=== PATIENT | male | born 1990 | race Caucasian/White ===

== ENCOUNTER 2019-03-22 11:50 | Emergency (ER) | payer BC ==
[~2019-03-22] VITALS: Ht 182.9 cm; Wt 80.7 kg
[~2019-03-22 11:50] MED LIST: ACETAMINOPHEN-1 EAC1 PO; BACTRIM DS TAB1 EACH; DOXYCYCLINE 10100 M1 PO; IBUPROFEN 400400 M1; NORCO 5-325 TA1 EACH PO; TOBRAMYCIN SULFA5 ML OPHTHALMIC; TRAMADOL 50 MG50 MG; ZOFRAN4 MG PO
[2019-03-22] MEDS ORDERED: NYQUIL PO (12:16)
[2019-03-22 12:31] LABS: ABSOLUTE EOSINOPHILS 0.4 thou/uL (0.0-0.7); ABSOLUTE LYMPHOCYTES 1.1 thou/uL (0.8-5.3); ABSOLUTE MONOCYTES 0.5 thou/uL (0.0-1.2); ABSOLUTE NEUTROPHILS 5.7 thou/uL (1.6-8.1); BASOPHILS 0.3 %; EOSINOPHILS 5.1 %; HEMATOCRIT 42.5 % (42.0-52.0); HEMOGLOBIN 14.4 gm/dL (14.0-18.0); LYMPHOCYTES 14.2 %; MCH 29.5 pg (26.0-34.0); MCHC 33.8 g/dL (28.0-37.0); MCV 87.3 fL (80.0-100.0); MPV 7.3 fl. (7.2-11.1); NUCLEATED RBCS 0 /100WBC; PLATELET COUNT* 301 thou/uL (150-400); POLYS 73.4 %; RBC 4.87 mil/uL (4.50-6.00); RDW-CV 13.2 % (10.5-14.5); WBC 7.7 thou/uL (4.0-11.0)
[2019-03-22 12:39] LABS: CALCIUM 8.8 mg/dL (8.5-10.1); CREATININE 0.9 mg/dL (0.6-1.3); POTASSIUM 4.2 mmol/L (3.5-5.1)
[2019-03-22 12:44] LABS: ALBUMIN 3.8 g/dL (3.4-5.0); MAGNESIUM 2.1 mg/dL (1.8-2.4); TOTAL BILIRUBIN 0.5 mg/dL (<0.1-1.0)
[2019-03-22 12:51] LABS: BE -1.9 mmol/L (-2 to +3); PO2 70.2 mmHg (75.0-100.0); pH 7.401 (7.340-7.450)
[2019-03-22] MEDS ORDERED: MUCINEX DM ER1 EACH PO (13:42)
[2019-03-22] MEDS ORDERED: AMOXICILLIN875 MG PO (13:42)
[2019-03-22] MEDS ORDERED: MEDROLDOSEPACK PO (13:42)
[2019-03-22 13:50] LABS: URINE BILIRUBIN NEGATIVE (Negative); URINE BLOOD NEGATIVE (Negative); URINE CLARITY CLEAR; URINE COLOR YELLOW; URINE GLUCOSE-RANDOM NEGATIVE (Negative); URINE KETONES NEGATIVE (Negative); URINE LEUKOCYTES-REFLEX NEGATIVE (Negative); URINE NITRITE-REFLEX NEGATIVE (Negative); URINE PROTEIN NEGATIVE (Negative); URINE SPECIFIC GRAVITY 1.025 (1.005-1.030); URINE UROBILINOGEN 0.2 E.U./dl (0.2-1.0)
[2019-03-22 14:09] VITALS: BP 128/53
== END 2019-03-22 14:10 | disposition home or self-care (01) ==
LOC: M.ERS 11:50
PROVIDERS: Personal Emergency Response Attendant
DX: J40 Bronchitis, not specified as acute or chronic (principal); J02.9 Acute pharyngitis, unspecified; R61 Generalized hyperhidrosis; R11.10 Vomiting, unspecified; F17.210 Nicotine dependence, cigarettes, uncomplicated; F10.10 Alcohol abuse, uncomplicated; Z79.899 Other long term (current) drug therapy

== ENCOUNTER 2020-03-26 19:38 | Emergency (ER) | payer OTHER, BC ==
[~2020-03-26] VITALS: Ht 182.9 cm; Wt 70.3 kg
[~2020-03-26 19:38] MED LIST changes: +AMOXICILLIN875 MG PO; +MEDROLDOSEPACK PO; +MUCINEX DM ER1 EACH PO; +NYQUIL PO
[2020-03-26] MEDS ORDERED: NAPROSYN500 MG PO (20:54)
[2020-03-26 21:17] VITALS: BP 136/74
== END 2020-03-26 21:17 | disposition home or self-care (01) ==
LOC: M.ERS 19:38
DX: S93.492A Sprain of other ligament of left ankle, initial encounter (principal); F17.210 Nicotine dependence, cigarettes, uncomplicated; Z87.01 Personal history of pneumonia (recurrent); Z88.1 Allergy status to other antibiotic agents; Z88.2 Allergy status to sulfonamides; W10.8XXA Fall (on) (from) other stairs and steps, initial encounter; Y93.89 Activity, other specified; Y92.89 Other specified places as the place of occurrence of the external cause; Y99.8 Other external cause status